=== PATIENT | male | born 1980 | race Caucasian/White ===

== ENCOUNTER 2019-11-27 12:32 | Emergency (ER) | payer SELFPAY ==
[~2019-11-27] VITALS: Ht 182.9 cm; Wt 68.0 kg
[2019-11-27 12:38] VITALS: BP 112/86
--- NOTE | 2019-11-27 14:12 | NUR ---
pt was provided w/ meal tray and bus card. medically cleared for discharge. was seen by [employer] social worker. pt refused to sign homeless waiver discharge. escorted out in stable condition.
--- NOTE | 2019-11-27 14:13 | NUR ---
Social Service consult requested by MD for homelessness. Per MD notes, pt is a 39-year-old male brought in by EMS for wandering on the street. When he was picked up he reported that he is feeling weak and dizzy and has not eaten. He does not provide any focal symptoms. No numbness or muscle weakness. No fevers, shortness of breath, chest pain, vomiting, or diarrhea. No blurry vision. He denies any recent injury. He denies recent alcohol or drug use. He is asking for a sandwich and a drink. ELECTRONIC INSTALLER met with the pt bedside. ELECTRONIC INSTALLER introduced self and purpose of the visit. Pt is alert and oriented x 4. Pt appears disheveled and unkempt. Pt had his belongings bedside. Pt reports, he is homeless since he ran away from his family in [place]. Pt is a poor historian. Pt reports his family is stealing his SSI. ELECTRONIC INSTALLER encouraged pt to go to the Social Security Office and file a complaint. Pt declined to provide any psychiatric or substance use/abuse history. Pt declined correction placement and was provided with Homeless Resources Related to COVID-19 which include shelters, food resources, hygiene, mental health/support services and [employer], [employer], [employer], [employer] contacts. ELECTRONIC INSTALLER provided pt with active listening and supportive counseling. Pt refused to sign Homeless patient waiver form. Pt was provided with a TAP card. Pt was escorted out of ED with security. No other social service needs are requested at this time. MELECIO Yanes is aware of pt's discharge disposition.
== END 2019-11-27 14:15 | disposition home or self-care (01) ==
LOC: ER 12:35
DX: E86.0 Dehydration (principal); Z59.0 Homelessness; Z98.890 Other specified postprocedural states